=== PATIENT | male | born 1970 | race Caucasian/White ===

== ENCOUNTER → 2016-12-19 | Outpatient (CLI) | payer BC ==
[2016-12-19 15:56] LABS: BASOPHILS % (AUTO) 0.5 % (0-2); EOSINOPHILS # (AUTO) 0.1 T/MM3 (0-0.5); EOSINOPHILS % (AUTO) 2.4 % (0-4); HCT - HEMATOCRIT 48.3 % (41-53); HGB - HEMOGLOBIN 17.3 GM/DL (13.5-17.5); IMMATURE GRANULOCYTE # (AUTO) 0.02 T/MM3 (0.00-0.03); IMMATURE GRANULOCYTE % (AUTO) 0.4 % (0.0-0.5); LYMPHOCYTES # (AUTO) 1.5 T/MM3 (1-4.8); LYMPHOCYTES % (AUTO) 27.4 % (23-45); MEAN CORPUSCULAR HGB 33.9 UUG (26-34); MEAN CORPUSCULAR HGB CONC(MCHC 35.8 GM/DL (31-37); MEAN CORPUSCULAR VOLUME 94.7 UM3 (80-100); MEAN PLATELET VOLUME 8.8 UM3 (9.4-12.4); MONOCYTES # (AUTO) 0.4 T/MM3 (0-0.8); MONOCYTES % (AUTO) 7.7 % (0-9.0); NEUTROPHILS #(AUTO)-ABSOLUTE 3.4 T/MM3 (1.8-7.7); NEUTROPHILS % (AUTO) 61.6 % (33-66); WBC - WHITE BLOOD COUNT 5.5 T/MM3 (4.5-11.0)
[2016-12-19 16:05] LABS: ALBUMIN 4.3 G/DL (3.5-5.0); ALBUMIN/GLOBULIN RATIO 1.4 RATIO (1.1-2.2); ALKALINE PHOSPHATASE 57 U/L (38-126); ALT (SGPT) 54 U/L (21-72); ANION GAP 8 MEQ/L (5-15); AST (SGOT) 33 U/L (17-59); BUN/CREATININE RATIO 28 RATIO (6-26); CALCIUM 9.7 MG/DL (8.4-10.2); CHLORIDE 106 MEQ/L (98-107); CO2 - CARBON DIOXIDE 26 MEQ/L (22-30); CREATININE 0.4 MG/DL (0.8-1.5); GLOMERULAR FILTRATION RATE 230; GLUCOSE 267 MG/DL (75-110); POTASSIUM 4.4 MEQ/L (3.6-5); SODIUM 140 MEQ/L (134-144); TOTAL PROTEIN 7.3 G/DL (6.3-8.2)
== END ==
LOC: LAB 15:17
PROVIDERS: ATTEND Family Medicine
DX: R19.7 Diarrhea, unspecified (principal)
CPT/HCPCS: 36415; 80053; 85025

== ENCOUNTER 2017-12-10 15:15 | Inpatient (IN) ==
[2017-12-10 16:19] VITALS: BMI 28.5
[2017-12-10] MEDS ORDERED: LEVOFLOXACIN PB 750 MG/150 ML BAG IV SCH (16:45)
[2017-12-10] MEDS ORDERED: NS FLUSH BAG 500ml IV PRN (16:46)
--- NOTE | 2017-12-10 16:48 | History & Physical Report ---
History of Present Illness Date: 12/10/17 Chief complaint: Left scrotal pain HPI: Justin Cordova is a 47 y/o male who developed left scrotal pain/redness/swelling around 12/04/17. He denies f/c, myalgias. He has a hx of type 2 DM which is diet- controlled. He states that his appetite hasn't been quite as good as usual but denies n/v or abdominal pain, diarrhea, or constipation. He denies pain with urination or changes with urination. He has sinus drainage and has had a mild right earache. 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 He was tachycardic with HR of 123 but BP was stable and he was afebrile. Justin opted to leave AMA before any further evaluation/testing. He saw Dr. Cavazos in f/u on 12/10/17, and again was tachycardic with a HR of 118. Concerned about worsening cellulitis and early Maximo's, Dr. Cavazos contacted Dr. Gilbert for direct admission, IV antibiotics, and surgical consultation. Review of Systems All systems PM: 10-point ROS was reviewed, no additional remarkable complaints except - Constitutional Constitutional: Present: weight loss (He used to weigh 360 lbs, now is about 215 ). Absent: chills, fatigue, fever(s), headache(s), increased appetite - EEMNT Eyes: Absent: blurry vision, change in vision Ears: Present: ear pain (right) Balance: Absent: vertigo Nose: Present: allergies (not presently), other (sinus drainage). Absent: nosebleeds, obstruction Mouth/Throat: Absent: sore throat, changes in swallowing - Cardiovascular Cardiovascular: Absent: chest pain, dyspnea on exertion, edema Vascular: Absent: pedal edema - Respiratory Respiratory: Absent: cough, dyspnea, dyspnea on exertion, wheezing - Gastrointestinal Gastrointestinal: Absent: abdominal pain, constipation, diarrhea, nausea, vomiting - Genitourinary Genitourinary: Present: as per HPI, scrotal swelling. Absent: dysuria - Musculoskeletal Musculoskeletal: Absent: muscle cramps, muscle weakness - Integumentary/Breasts Integumentary: Present: as per HPI - Neurological Neurological: Absent: confusion, dizziness, focal weakness, headache(s), numbness, paresthesias, sensory deficit, weakness - Psychiatric Psychiatric: Absent: anxiety - Endocrine Endocrine: Absent: palpitations - Hematologic/Lymphatic Hematologic/Lymphatic: Absent: easy bruising - Allergic/Immunologic Allergic/Immunologic: Present: seasonal rhinorrhea Past Medical History HTN DM type 2 Dyslipidemia Overweight BMI 28.5 Surgical History: Denied by patient. Family History Updates: Mother, sister, PGM, MGM all had asthma. MGF had CHF. PGM had cancer. Mother, MGF had HTN. - Social History Smoking status: Current every day smoker (used to smoke 1/2 ppd now only smokes a few cigs. per day.) Alcohol intake frequency: a few times a week Household members: spouse Current occupational status: unemployed Social history: PCP: Dr. Milton Medications Home Medications Medication Instructions Recorded Confirmed Type No known Home medications [No home 12/10/17 12/10/17 History meds] Allergies Allergy/AdvReac Type Severity Reaction Status Date / Time sulfamethoxazole Allergy Intermediate REDNESS,TAC Verified 12/10/17 16:25 HYCARDIA,DI APHORESIS trimethoprim Allergy Intermediate REDNESS,TAC Verified 12/10/17 16:25 HYCARDIA,DI APHORESIS aspirin Allergy Unknown Verified 12/10/17 16:25 Exam Vital Signs: Temperature 99.4 F 12/10/17 16:00 Pulse Rate 123 H 12/10/17 16:00 Respiratory Rate 18 12/10/17 16:00 Blood Pressure 135/76 12/10/17 16:00 Pulse Oximetry 99 12/10/17 16:00 Height/Weight/BMI: Height 1.85 m Weight 98 kg Body Mass Index 28.5 - Constitutional Present: no acute distress, well nourished, well developed - Routine HEENT Exam Head: Present: normocephalic Eye: Present: PERRL. Absent: conjunctival icterus, scleral injection ENT: Present: mucous membranes moist (mild posterior pharynx erythema/ cobblestoning), oropharynx clear. Absent: mucous membranes dry Comments: Right TM mildly erythematous along border but otherwise clear. Left TM was partially occluded by cerumen but visualized portion was chawla-colored. - Routine Neck Exam Present: supple. Absent: lymphadenopathy - Routine Respiratory Exam Present: CTA bilaterally - Routine Cardiovascular Exam Present: RRR, S1, S2, tachycardia - Routine Abdominal Exam Present: soft, normoactive bowel sounds, non distended, non tender - Routine Exam Comments: examined per attending - Routine Extremities Exam Present: no edema, pulses intact - Routine Skin Exam Present: intact, dry, warm - Routine Neurological Exam Present: alert, oriented X3, CN II-XII intact, moving all extremities, normal speech - Routine Psychiatric Exam Present: normal affect, normal thought process, cooperative Results - Labs CBC & Chem 7: 12/10/17 16:56 12/10/17 16:56 Assessment and Plan Assessment and Plan: Assessment Scrotal cellulitis Tachycardia, mild leukocytosis HTN DM type 2 Dyslipidemia Plan Admit, inpatient status - pt prefers to have as little done as possible. Agreeable to baseline labs; CBC, lactate, & BMP ordered: Mild leukocytosis with WBC of 11.9, neut 79%, bands 1%. BUN 19, creatinine 0.4. Lactate was normal at 1.3. Dr. Munoz consulted - recommends scrotal u/s. Empirically start Levaquin 750 mg IV. Tylenol PRN pain; Reglan PRN nausea. D/W Dr. Gilbert, RN. Care will be returned to Dr. Milton upon d/c. Resuscitation Status: Full Code - Physician Narrative Physician: Aixa Gilbert MD Narrative: Date: 12/10/17 Time: 1709 I have independently evaluated and examined this patient. I reviewed the chart, the patient's history, and the TECHNICAL MARKETING ENGINEER/PA's documented findings as above. We discussed and formulated the assessment and plan as above with additions as below: Mr. Cordova was referred by Dr. Cavazos for further management of scrotal cellulitis with possible abscess. The patient is reluctant to stay in the hospital due to cost and refused testing in the ER yesterday after he initially presented for evaluation. He reports history of similar scrotal infection about 14 years ago managed with I&D and oral antibiotics and doesn't believe anything needs to be done differently this time. He denies fever or sweats, reports his appetite is been good, and has had no scrotal drainage. evaluation reveals circumcised penis, generalized scrotal erythema with induration along the lateral aspect of the left hemiscrotum. I can't appreciate any fluctuance or mass; there is no ulceration and no drainage. Erythema does not extend onto the thigh. Patient has agreed discoidal ultrasound and basic lab work for evaluation. Discussed with Dr. Munoz will see the patient following his surgical cases today to determine if drainage is needed. Levaquin to be initiated with initial dose being given now IV. At present patient indicating that he will not stay overnight for further therapy. Discussed with Dr. Cavazos earlier. Hospital Course Summary Disclaimer: The visit summary below is not to be considered part of the above Progress Note. Hospital Course: 12/10 Admit, inpatient status - pt prefers to have as little done as possible. Agreeable to baseline labs; CBC, lactate, & BMP ordered: Mild leukocytosis with WBC of 11.9, neut 79%, bands 1%. BUN 19, creatinine 0.4. Lactate was normal at 1.3. Dr. Munoz consulted - recommends scrotal u/s. Empirically start Levaquin 750 mg IV. Tylenol PRN pain; Reglan PRN nausea.
[2017-12-10] MEDS ORDERED: ACETAMINOPHEN 325 MG TABLET PO PRN (17:11)
[2017-12-10] MEDS ORDERED: METOCLOPRAMIDE 10mg/2ml INJECTION IVP PRN (17:12)
--- NOTE | 2017-12-10 18:40 | General Surgery Consult Note ---
Consult date: 12/10/17 Attending Physician: Aixa Gilbert MD Reason for consult: wound care [facility] Patient Stated Medical History Hypertension Yes Asthma Yes Diabetes Mellitus Type 2 Yes Surgical History: Denied by patient. Family History Updates: Mother, sister, PGM, MGM all had asthma. MGF had CHF. PGM had cancer. Mother, MGF had HTN. - Social History Smoking status: Current every day smoker (used to smoke 1/2 ppd now only smokes a few cigs. per day.) Substance use type: does not use Alcohol intake frequency: a few times a week Household members: spouse Current occupational status: unemployed Medications Home Medications Medication Instructions Recorded Confirmed Type No known Home medications [No home 12/10/17 12/10/17 History meds] Allergies Allergy/AdvReac Type Severity Reaction Status Date / Time sulfamethoxazole Allergy Intermediate REDNESS,TAC Verified 12/10/17 16:25 HYCARDIA,DI APHORESIS trimethoprim Allergy Intermediate REDNESS,TAC Verified 12/10/17 16:25 HYCARDIA,DI APHORESIS aspirin Allergy Unknown Verified 12/10/17 16:25 Review of Systems 10-point ROS: negative except for HPI and the following: - Eyes/Ears/Nose/Throat Ear Nose Throat: Present: other (sinus drainage and ear ache) - Cardiovascular Cardiovascular: Present: other (tachycardia) - Respiratory Respiratory: Present: other (smoker) - Gastrointestinal Gastrointestinal: Present: other (decreased appetite) - Genitourinary Additional comments: scrotal swelling, pain - Endocrine Endocrine: Present: diabetes - Vital Signs Last Vital Signs Temp 99.4 F 12/10/17 16:00 Pulse 123 H 12/10/17 16:58 Resp 18 12/10/17 16:58 BP 135/76 12/10/17 16:00 Pulse Ox 99 12/10/17 16:58 - Laboratory Result Diagrams: 12/10/17 16:56 12/10/17 16:56 General Surgery Results - Results Labs: 12/10/17 16:56 12/10/17 16:56 Hospital Course Summary Disclaimer: The visit summary below is not to be considered part of the above Progress Note. Hospital Course: 12/10 Admit, inpatient status - pt prefers to have as little done as possible. Agreeable to baseline labs; CBC, lactate, & BMP ordered: Mild leukocytosis with WBC of 11.9, neut 79%, bands 1%. BUN 19, creatinine 0.4. Lactate was normal at 1.3. Dr. Munoz consulted - recommends scrotal u/s. Empirically start Levaquin 750 mg IV. Tylenol PRN pain; Reglan PRN nausea.
--- NOTE | 2017-12-10 19:14 | Consultation ---
DATE OF CONSULTATION 12/10/2017 FINDINGS Mr. 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 Patient informs me that about ten years ago he had developed a "pus pocket" involving his scrotum. The patient states that at that time a doctor had "lanced him and put him on antibiotics." Patient states over the last ten years he has done fairly well until Sunday last . Patient states that on Sunday of last he began to notice that his left testicle was beginning to become red and painful in nature. He states that he has noted that there is an area of hardness involving his left testicle. The patient was apparently seen in the ER yesterday and was encouraged to be admitted to the hospital. Apparently he left AMA. Patient this evening had told me that he was "not staying tonight". I informed the patient that ultimately this is his decision during the interview process. The patient does have type 2 diabetes mellitus which is "diet-controlled." PAST MEDICAL HISTORY, PAST SURGICAL HISTORY, MEDICATIONS, ALLERGIES, SOCIAL HISTORY, FAMILY HISTORY, REVIEW OF SYSTEMS Performed by my nurse practitioner, Shawn Gutierrez APRN. PHYSICAL EXAM GENERAL: Mr. Cordova is a 47-year-old gentleman who does not appear to be in acute distress this evening. VITAL SIGNS: Temperature 99.4. Pulse is elevated at 123. Respiratory rate 18, blood pressure 135/76, SAO2 99% on room air. HEENT: Normocephalic. Pupils are equally round and react to light and accommodation. NECK: Supple without lymphadenopathy. CHEST: Clear to auscultation bilaterally. HEART: Regular rate and rhythm. Normal S1 and S2 without gallops, murmurs or clicks. ABDOMEN: Palpation of the abdomen reveals it to be soft and nontender. I do not appreciate any evidence for hepatosplenomegaly nor abnormal masses. EXTREMITIES: Without clubbing, cyanosis, or edema. GENITOURINARY: Attention was focused to the area of concern. One can see a marked prominence within the left hemiscrotum in comparison to the right. Palpation of the right hemiscrotum did not reveal any palpable abnormalities. No tenderness was noted. Attention was then focused to the left hemiscrotum. The patient did have a hard mass present as well as a component of fluctuance involving the lateral aspect of the scrotum itself. One could see what appeared to be that of a pustule just beneath the surface of the skin overlying this area of firmness as well as overlying the area of fluctuance. There was no evidence for skin necrosis. There was no "purplish discoloration" of the skin. No evidence for subcutaneous crepitans of the tissues within the scrotum or parascrotal region to suggest necrotizing fasciitis/Maximo's gangrene. LABORATORY/RADIOGRAPHIC EVALUATION The patient had a CBC and his white count was 11.9. Hemoglobin is 15.3. The patient did not have a significant left shift with 1% bands. He did, however, have increased neutrophils at 79%. BMP was obtained and found to be essentially within normal limits. Glucose was elevated at 208. Plasma lactate was 1.3. Serum carbon dioxide was slightly low at 20. ASSESSMENT 47-year-old gentleman with probable left scrotal abscess. PLAN I do see the patient had undergone a scrotal ultrasound earlier today. There is no dictated report and Radiology has left. It is my intuition from his clinical findings that the patient did indeed have an underlying abscess. I do not see evidence to suggest Maximo's gangrene. The patient has been n.p.o. since this morning. It was my recommendation to the patient that given his physical findings that we go ahead and proceed with probable incision and drainage of a left scrotal abscess. I informed the patient if indeed there is evidence for Maximo's gangrene/evidence for necrotic tissue, then we would proceed with an excisional surgical debridement as indicated pending intraoperative findings. I did discuss with the patient what an incision and drainage with possible excisional surgical debridement would entail and its associated risks which included but was not inclusive of bleeding, infection, as well as potential loss of a fair amount of skin and subcutaneous tissues if indeed there is evidence for necrotizing fasciitis. Patient understood and wished to proceed. Additionally, I agree with current management of this patient. He has been placed on Levaquin since admission. May change antibiotics postoperatively pending intraoperative findings. Will likely add clindamycin and increase the spectrum of antibiotic coverage. EL[facility]
[2017-12-10] MEDS ORDERED: CLINDAMYCIN PB 600 MG/50 ML BAG IV SCH (19:15)
[2017-12-10] MEDS ORDERED: LR 1,000 ML IV SCH ×2 (19:15→21:32)
[2017-12-10] MEDS ORDERED: FentaNYL 250 MCG/5 ML INJECTION ONE (20:09)
[2017-12-10] MEDS ORDERED: MIDAZOLAM 2mg/2ml INJECTION ONE (20:10)
[2017-12-10] MEDS ORDERED: PROPOFOL 20 ML ONE (20:11)
[2017-12-10] MEDS ORDERED: PROPOFOL 0 MG/0 ML VIAL ONE (20:11)
[2017-12-10] MEDS ORDERED: BUPIVACAINE 0.25%/EPI 1:200,000 30ml SDV ID ONE (20:30)
[2017-12-10] MEDS ORDERED: MORPHINE SULFATE 10 MG/ML VIAL IVP PRN ×2 (20:31→20:42)
[2017-12-10] MEDS ORDERED: ONDANSETRON 4 MG/2 ML INJECTION IVP PRN ×2 (20:31→21:32)
[2017-12-10] MEDS ORDERED: BUPIVACAINE 0.25%/EPI 1:200,000 30ml SDV ONE (20:33)
[2017-12-10] MEDS ORDERED: MORPHINE SULFATE 10 MG/ML VIAL ONE (20:37)
[2017-12-10] MEDS ORDERED: DiphenhydrAMINE 50 MG/ML INJECTION ONE (20:42)
[2017-12-10] MEDS ORDERED: ONDANSETRON 4 MG/2 ML INJECTION ONE (20:42)
--- NOTE | 2017-12-10 20:51 | General Surgery Procedure Note ---
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
--- NOTE | 2017-12-10 21:08 | Anesthesia Preoperative Report ---
Anesthesia Preoperative Record - Date and Time Date: 12/10/17 Preoperative Diagnosis: scrotal abs/cellulitis, Possible Maximo Gangrene Proposed Procedure: scrotal I&D NPO Since Date: 12/09/17 NPO Since Time: 23:00 Allergies/Adverse Reactions: Allergies Allergy/AdvReac Type Severity Reaction Status Date / Time sulfamethoxazole Allergy Intermediate REDNESS,TAC Verified 12/10/17 16:25 HYCARDIA,DI APHORESIS trimethoprim Allergy Intermediate REDNESS,TAC Verified 12/10/17 16:25 HYCARDIA,DI APHORESIS aspirin Allergy Unknown Verified 12/10/17 16:25 - Vital Signs Vital Signs: Temperature 99.4 F 12/10/17 16:00 Pulse Rate 123 H 12/10/17 16:58 Respiratory Rate 18 12/10/17 16:58 Blood Pressure 135/76 12/10/17 16:00 Pulse Oximetry 99 12/10/17 16:58 Height and Weight: Height 6 ft 1 in Weight 98 kg Body Mass Index 28.5 - Medications Inpatient Medications: Current Medications Acetaminophen (Tylenol) 650 mg PO QID PRN PRN Reason: Discomfort Bupivacaine HCl/Epinephrine Bitart (Marcaine/Epi 0.25%/1:200,000) 30 ml ID O ONE Stop: 12/10/17 20:31 Last Admin: 12/10/17 20:45 Dose: 8 ml Levofloxacin/Dextrose (Levaquin Premix) 750 mg in 150 mls @ 100 mls/hr IV Q24H [facility] Last Infusion: 12/10/17 18:37 Dose: Infused Lactated Ringer's (Lactated Ringers) 1,000 mls @ 50 mls/hr IV .Q20H [facility] Last Admin: 12/10/17 20:00 Dose: 50 mls/hr Clindamycin Phosphate (Cleocin Premix) 600 mg in 50 mls @ 100 mls/hr IV Q8H [facility] Last Infusion: 12/10/17 20:37 Dose: Infused Metoclopramide HCl (Reglan) 5 mg IVP Q6H PRN Morphine Sulfate (Morphine Sulfate Vial) 0 mg IVP Q10M PRN Morphine Sulfate (Morphine Sulfate Vial) 0 mg IVP Q10M PRN Ondansetron HCl (Zofran) 4 mg IVP O PRN PRN Reason: Nausea &/or vomiting Sodium Chloride (Normal Saline) 500 ml IV PRN PRN Last Admin: 12/10/17 17:03 Dose: 500 ml Home Medications: Home Medications Medication Instructions Recorded Confirmed Type Clindamycin [Cleocin] 300 mg PO QID #28 cap 12/10/17 Rx Hydrocodone/APAP 5/325 [[place] 1 - 2 tab PO QID PRN #20 tab 12/10/17 Rx 5/325] levoFLOXacin [Levaquin] 750 mg PO ACB #7 tab 12/10/17 Rx Is Patient on Beta Jeremy?: No - Medical History Respiratory: Reports: Asthma Cardiovascular: Reports: Hypertension Renal/Endocrine: Reports: Diabetes Mellitus Type 2 Other History: DENIES: Anesthesia Reactions - Surgical History Anesthesia Reactions: None Hx Family Anesthesia Reaction: No History of Motion Sickness: No - Social History Smoking Status: Current every day smoker (used to smoke 1/2 ppd now only smokes a few cigs. per day.) Hx Chewing Tobacco Use: No Second Hand Exposure: No Substance Use Type: does not use Alcohol Intake Frequency: a few times a week - Pertinent Findings Laboratory: CBC and BMP 12/10/17 16:56 12/10/17 16:56 BMP 12/10/17 16:56 Sodium 137 Potassium 4.9 Chloride 98 Carbon Dioxide 20 L BUN 15.0 Creatinine 0.4 L Glucose 208 H Calcium 9.7 EKG: Sinus Rhythm - Physical Exam Respiratory Exam: Present: lungs clear, bilateral breath sounds equal Cardiovascular Exam: Present: regular rate and rhythm - Airway Assessment Mallampati Score: II TMD: 3 Fingerbreadths Neck Extension: good Overall Assessment: no airway concerns - ASA ASA Score: 3 - Plan Anesthesia: General Inhalation Gases - Discussion Discussion: Discussed risks/options/alternatives of anesthesia and questions answered. Patient consents. Nursing pain assessment noted. Present for Discussion: spouse Attestation Statement: Prior to the delivery of any anesthetic medication, I examined the patient, developed the plan, obtained the patient's consent and discussed the risk and benefits of the procedure with the patient/guardian. - Additional Information Seen by Anesthesia: Yes
--- NOTE | 2017-12-10 21:09 | Anesthesia Postoperative Note ---
- Date and Time Date: 12/10/17 Time: 21:08 - Status Patient Participated in Evaluation: Patient Participated in Person Vital Signs: Temperature 97.8 F 12/10/17 20:54 Pulse Rate 97 12/10/17 20:54 Respiratory Rate 14 12/10/17 20:54 Blood Pressure 135/76 12/10/17 16:00 Pulse Oximetry 95 12/10/17 20:54 Respiratory Function: Airway Patent Cardiovascular Function: Regular Pulse EKG: Sinus Rhythm Mental Status: Alert and Oriented Pain Intensity: 2 Hydration: IV Infusing Complications During Recover: None Apparent - Follow-Up Instructions Instructions: Per Surgeon
[2017-12-10 21:11] VITALS: RESP 20
[2017-12-10 21:24] VITALS: BP 138/77; PULSE 105; TEMP 99.4; O2SAT 97
[2017-12-10] MEDS ORDERED: MORPHINE SULFATE 4mg INJECTION IVP PRN (21:32)
[2017-12-10] MEDS ORDERED: PIPERACILLIN/TAZOBACTAM 3.375 GM in NS 100 ML IV SCH (21:32)
[2017-12-10] MEDS ORDERED: HYDROCODONE/APAP 5mg/325mg TABLET PO PRN (21:32)
--- NOTE | 2017-12-11 08:28 | Ultrasound Report ---
Indication: painful swelling-left PROCEDURE: US scrotum: Encounter: Initial Comparison: None FINDINGS: Both testicles are present in expected location. The testicles demonstrate a homogenous echotexture without intratesticular mass. The right testicle measures 2.4 x 1 x 1.8 cm, and the left testicle measures 2.3 x 1.8 x 1.6 cm. Color Doppler imaging demonstrates increased symmetric, arterial flow throughout both testicles. Normal pulsed Doppler arterial and venous waveforms were obtained from each testicle. Both epididymides show no focal mass, but show slight hyperemia. Heterogeneous mixed echogenicity 3.5 cm region in the left hemiscrotum could represent a fat-containing hernia. Skin thickening. IMPRESSION: 1. Possible left-sided scrotal fat containing hernia versus hematoma or less likely abscess. No sonographic evidence of testicular torsion. 2. Possible epididymoorchitis. There is a preliminary report by [facility]. .
--- NOTE | 2017-12-11 11:16 | Discharge Summary ---
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 Ross Munoz Mr. Cordova was admitted from the office after evaluation demonstrated probable scrotal abscess. On arrival he indicated he did not plan to stay in the hospital. He eventually agreed to have basic blood work done and a scrotal ultrasound which demonstrated skin thickening in the left scrotum and a heterogenous mixed echogenicity 3.5 cm region in the left hemiscrotum that may represent hernia versus abscess. He was taken to the operating room by Dr. Munoz where abscess was drained and necrotic tissue removed. Wound was packed and he returned to the surgical floor. Shortly after returning from surgery the patient left AMA. Prior to surgery he was treated with IV Levaquin and clindamycin. Prescriptions for Levaquin and clindamycin orally were written for the patient preoperatively anticipating his likely decision to leave the hospital. He was additionally given a prescription for small number of [place] for postop pain control and advised to follow-up with Dr. Munoz or Dr. Cavazos within 48 hours for reassessment of surgical wound.
--- NOTE | 2017-12-12 07:48 | Operative Note ---
DATE OF SERVICE 12/10/2017 SURGEON Ross Munoz MD ZONING ASSISTANT Shawn Gutierrez APRN PREOPERATIVE DIAGNOSIS Left scrotal abscess. 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 PROCEDURE Incision and drainage of left scrotal abscess, 8 cm x 4 cm, with excisional surgical debridement of necrotic subcutaneous tissues and enveloping dartos fascia. ANESTHESIA TIVA/local. BRIEF HISTORY/INDICATIONS Mr. Cordova is a 47-year-old diabetic gentleman I was asked to see earlier this evening as a result of a large painful mass involving his left scrotum. Upon examination the patient was found to have a quite erythematous, indurated and somewhat fluctuant left hemiscrotum. It was my intuition the patient likely had an underlying abscess. It was therefore recommended he undergo surgical intervention. It was recommended that this be carried out in an operative setting in case there was a component of necrotic tissue. For completeness please refer to notes included in the patient's chart. DESCRIPTION OF PROCEDURE After informed consent was obtained, the patient was brought to the operative suite and the scrotum/lower inguinal region and perineal region was prepped and draped in a sterile fashion. Formal time-out was then completed. 0.25% Marcaine with epinephrine was injected overlying the area of fluctuance involving the lateral aspect of the left hemiscrotum. Upon injecting local anesthetic, one could then begin to see purulent material coming forth from the small puncture sites from where the local anesthetic was injected. Initially a small cruciate incision was made overlying the area of analgesia. A suction tip catheter was advanced through the cruciate incision into the underlying abscess cavity. A copious amount of dark, purulent, somewhat "dirty dishwater color" purulent material was suctioned from the underlying large abscess cavity. One could then see some necrotic tissue within the suction tip catheter. Suction tip catheter was removed. An incision that was about 8 cm in length was made overlying the abscess cavity to its full extent. There was no evidence for necrosis of the skin edges although there was evidence for necrotic subcutaneous tissues as well as a portion of the enveloping fascia overlying the left testicle. Excisional surgical debridement was then carried out sharply with a surgical curette, knife and at times electrocautery. All nonviable subcutaneous tissues and necrotic fascia was excised. Anaerobic and aerobic bacterial cultures were obtained from within the wound. Intraoperative findings were consistent with that of early Maximo's gangrene. Once all nonviable tissue had been sharply debrided, meticulous hemostasis was obtained with the use of electrocautery. Wound was left open. Wound was then packed with Kerlix moistened in normal saline. The patient is in the process of awakening from his anesthetic and will be sent back to recovery room once deemed in stable condition. Additionally, it should be noted that Shawn Gutierrez APRN, was present throughout the entire case and played a pivotal role in providing assistance and exposure during the course of the procedure. [facility]
== END 2017-12-10 22:25 | disposition left against medical advice (07) | DRG 718 ==
LOC: SRG 15:19
PROVIDERS: ADMIT Internal Medicine; ATTEND Internal Medicine